=== PATIENT | male | born 1935 | race Caucasian/White ===

== ENCOUNTER 2017-07-16 08:08 | Emergency (ER) | payer MEDICARE, OTHER ==
[~2017-07-16] VITALS: Ht 170.2 cm; Wt 90.7 kg
[~2017-07-16 08:08] MED LIST: ADVAIR 250-501 EACH INH; ADVAIR 500-501 EACH INH; AMLODIPINE BESYL5 MG PO; AUGMENTIN 875-1 EACH PO; BENADRYL25 MG PO; BETAMETHASONE V15 G1 TOP; CARDIZEM60 MG PO; CARVEDILOL3.125 MG PO; COREG6.25 MG PO; DILTIAZEM ER60 MG PO; DUONEB 0.5 MG-33 ML IH; EFFEXOR XR37.5 MG PO; FUROSEMIDE40 MG PO; GUAIFENESIN-CODE5 ML PO; HYDROCODONE-IB1 EACH; IPRAT-ALBUT 0.5-3 ML INH; KEFLEX500 MG PO; KLOR-CON M2020 MEQ PO; LEVAQUIN500 MG PO; LEVOFLOXACIN250 MG PO; LOPERAMIDE2 MG PO; MINIPRESS5 MG PO; NAPROSYN375 MG PO; NASONEX17 GM NAS; NORCO 10-325 T1 EACH PO; NORCO 5-325 TA1 EACH PO; NORVASC5 MG PO; PREDNISONE10 MG PO; PREDNISONE20 MG PO; PRILOSEC OTC20 MG PO; PRILOSEC20 MG PO; SINGULAIR10 MG PO; VENLAFAXINE H37.5 MG PO
[2017-07-16] MEDS ORDERED: FUROSEMIDE40 MG PO (08:22)
[2017-07-16] MEDS ORDERED: GABAPENTIN300 MG PO (08:22)
[2017-07-16] MEDS ORDERED: DULOXETINE HCL60 MG PO (08:23)
[2017-07-16] MEDS ORDERED: SEROQUEL25 MG PO (10:19)
[2017-07-16] MEDS ORDERED: LEVOFLOXACIN500 MG PO (10:19)
--- NOTE | 2017-07-16 19:18 | EKG ---
[facility] [address] [facility] [place], [place] [address] Signed Normal sinus rhythm Low voltage QRS Right bundle branch block Left anterior fascicular block Bifascicular block Abnormal ECG No previous ECGs available Confirmed by ROEL BETTENCOURT MD ([id number]) on 07/16/2017 7:18:05 PM Electronically Signed By: ROEL BETTENCOURT MD 07/16/17 1918 PATIENT NAME: SEDRICKWALT Electrocardiogram DATE OF : 31 PHYSICIAN: ROEL BETTENCOURT MD REPORT #: [id number] REPORT IS CONFIDENTIAL AND NOT TO BE RELEASED WITHOUT AUTHORIZATION
== END 2017-07-16 11:00 | disposition home or self-care (01) ==
LOC: ED 08:08
PROC: 0T9B70Z Drainage of Bladder with Drainage Device, Via Natural or Artificial Opening (ICD-10-PCS; principal; 2017-07-16)
DX: N39.0 Urinary tract infection, site not specified (principal); F03.90 Unspecified dementia, unspecified severity, without behavioral disturbance, psychotic disturbance, mood disturbance, and anxiety; J44.9 Chronic obstructive pulmonary disease, unspecified; I10 Essential (primary) hypertension; Z85.46 Personal history of malignant neoplasm of prostate; Z87.442 Personal history of urinary calculi; Z87.891 Personal history of nicotine dependence; Z95.5 Presence of coronary angioplasty implant and graft; Z88.2 Allergy status to sulfonamides; Z88.8 Allergy status to other drugs, medicaments and biological substances; Z88.1 Allergy status to other antibiotic agents; Z79.899 Other long term (current) drug therapy
CPT/HCPCS: 51701; 70450; 71010; 80053; 81001; 83605; 85025; 87077; 87088; 87186; 93005; 93010; 96372; 99284; J0696

== ENCOUNTER 2018-11-15 14:58 | Emergency (ER) | payer MEDICARE, OTHER ==
[~2018-11-15] VITALS: Ht 170.2 cm; Wt 90.7 kg
[~2018-11-15 14:58] MED LIST changes: +DULOXETINE HCL60 MG PO; +GABAPENTIN300 MG PO; +HALDOL DEC50 MG/1 ML IM; +LEVOFLOXACIN500 MG PO; +SEROQUEL25 MG PO
--- OUTSIDE RECORDS SUMMARY | 2018-11-15 15:00 | XMS ---
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 Gena VISIT COUNT (12 MO.) 2 [facility] [place] TOTAL 2 NOTE: Visits indicate total known visits. ED/UCC VISIT TRACKING (12 MO.) 11/15/2018 14:58 [facility] TYPE: Emergency COMPLAINT: - FALL 08/20/2018 20:53 [facility] TYPE: Emergency COMPLAINT: - WEAKNESS DIAGNOSES: - Chronic obstructive pulmonary disease, unspecified - Obstruction of bile duct - Hepatic failure, unspecified without coma - Other termination clerk (current) drug therapy - Personal history of malignant neoplasm of bladder - Disorientation, unspecified - Essential (primary) hypertension - Personal history of malignant neoplasm of prostate INPATIENT VISIT TRACKING (12 MO.) 08/21/2018 07:37 [facility] DIAGNOSES: - Abnormal results of liver function studies - Cholecystitis, unspecified - Vascular dementia with behavioral disturbance - Acute kidney failure, unspecified - Other acute pancreatitis without necrosis or infection - Metabolic encephalopathy - Unspecified diastolic (congestive) heart failure - Other specified diseases of liver - Acute pancreatitis without necrosis or infection, unspecified - Calculus of bile duct without cholangitis or cholecystitis without obstruction - Obstruction of bile duct [email or web address]
== END 2018-11-15 17:42 | disposition home or self-care (01) ==
LOC: ED 14:58
DX: S01.81XA Laceration without foreign body of other part of head, initial encounter (principal); W18.30XA Fall on same level, unspecified, initial encounter; I10 Essential (primary) hypertension; J44.9 Chronic obstructive pulmonary disease, unspecified; Z88.2 Allergy status to sulfonamides; Z88.8 Allergy status to other drugs, medicaments and biological substances; Z88.1 Allergy status to other antibiotic agents; Z79.899 Other long term (current) drug therapy; Z85.51 Personal history of malignant neoplasm of bladder; Z85.46 Personal history of malignant neoplasm of prostate
CPT/HCPCS: 12013; 70450; 72125; 99283-25